=== PATIENT | male | born 1995 | race Caucasian/White ===

== ENCOUNTER 2025-04-02 06:22 | Day surgery (SDC) | payer OTHER, SELFPAY ==
[2025-04-02] VITALS (7 sets, daily range): BP systolic 110–141; BP diastolic 67–81; BMI 25.0
[2025-04-02] MEDS: NORMOSOL-R/PLASMALYTE-A 1000 IV (07:56)
== END 2025-04-02 10:32 | disposition home or self-care (01) ==
LOC: SDS 06:22
PROVIDERS: ATTENDING PHYSICIAN Specialist; PRIMARYCARE PHYSICIAN Internal Medicine
DX: Z30.2 Encounter for sterilization (principal)
CPT/HCPCS: 55250; 88302; 88305